=== PATIENT | female | born 1985 | race Caucasian/White ===

== ENCOUNTER 2020-06-16 06:15 | Inpatient (IN) | payer OTHER ==
[2020-06-16 06:59] VITALS: BMI 37.5
[2020-06-16] MEDS ORDERED: CITRIC ACID/SODIUM CITRATE 30 ML UNIT-DOSE CUP PO ONE (08:24)
[2020-06-16] MEDS ORDERED: ELECTROLYTE-148 SOLN 500 ML IV ONE (08:24)
[2020-06-16] MEDS ORDERED: ELECTROLYTE-148 SOLN 1,000 ML IV SCH (08:30)
[2020-06-16] MEDS ORDERED: ONDANSETRON 4 MG/2 ML VIAL IVPUSH PRN (08:40)
[2020-06-16] MEDS ORDERED: morphine SULFATE/PF 0.5 MG/ML (2cc Syringe - QUVA) ONE (08:46)
[2020-06-16 08:51] LABS: HIV INTERPRETATION NEGATIVE (NEGATIVE)
[2020-06-16] MEDS ORDERED: ceFAZolin SODIUM 1 GM VIAL ONE (09:01)
[2020-06-16] MEDS ORDERED: ePHEDrine SULFATE 50 MG/1 ML AMPULE ONE (09:03)
[2020-06-16] MEDS ORDERED: SODIUM CHLORIDE 0.9% P/F 10 ML VIAL IJ ONE (09:03)
[2020-06-16] MEDS ORDERED: OXYTOCIN 10 UNITS/ML VIAL ONE (09:17)
[2020-06-16] MEDS ORDERED: oxyCODONE HCL 5 MG TABLET PO PRN (20:50)
[2020-06-17] MEDS: IBUPROFEN 600 MG TABLET (FP) PO PRN ×2 (06:21→16:51)
[2020-06-17 11:18] LABS: BASO % 0.1 % (0-2.0); EOS % 0.6 % (0-4.5); HEMATOCRIT 38.4 % (32.4-45.2); HEMOGLOBIN 12.7 GM/dL (10.7-15.3); LYMPH % 14.4 % (8-40); MCH 29.8 pg (25.7-33.7); MCHC 33.2 g/dl (32.0-36.0); MEAN CELL VOLUME 89.9 fl (80-96); MEAN PLT VOLUME 10.6 fl (7.5-11.1); MONO % 9.4 % (3.8-10.2); NEUT % 75.5 % (42.8-82.8); PLATELET COUNT 172 K/MM3 (134-434); RBC 4.27 M/mm3 (3.60-5.2); WHITE BLOOD COUNT 9.5 K/mm3 (4.0-10.0)
[2020-06-17] MEDS: ACETAMINOPHEN 325 MG TABLET (FP) PO PRN (16:51)
[2020-06-17] MEDS: FERROUS SO4 325 MG TABLET (FP) PO SCH (16:51)
[2020-06-17] MEDS: SIMETHICONE 80 MG TAB.CHEW (FP) PO PRN (16:51)
[2020-06-18] MEDS: SIMETHICONE 80 MG TAB.CHEW (FP) PO PRN (05:56)
[2020-06-18] MEDS: ACETAMINOPHEN 325 MG TABLET (FP) PO PRN (05:56)
[2020-06-18] MEDS: IBUPROFEN 600 MG TABLET (FP) PO PRN (05:57)
[2020-06-18] MEDS: FERROUS SO4 325 MG TABLET (FP) PO SCH (09:16)
[2020-06-18 11:51] VITALS: BP 104/74; PULSE 101; TEMP 98.1
== END 2020-06-18 12:04 | disposition home or self-care (01) | DRG 540 ==
LOC: JLDR 06:15 → J3W 11:26
PROVIDERS: ADMIT Obstetrics & Gynecology; ATTEND Obstetrics & Gynecology
PROC: 10D00Z1 Extraction of Products of Conception, Low, Open Approach (ICD-10-PCS; principal; 2020-06-16)
PROC: 0UB70ZZ Excision of Bilateral Fallopian Tubes, Open Approach (ICD-10-PCS; 2020-06-16)
DX: O34.211 Maternal care for low transverse scar from previous cesarean delivery (principal); N85.8 Other specified noninflammatory disorders of uterus; Z3A.39 39 weeks gestation of pregnancy; Z37.0 Single live birth; Z30.2 Encounter for sterilization
CPT/HCPCS: 36415; 85025; 87389; 88302-TC; 88307-TC